=== PATIENT | male | born 1980 | race Caucasian/White ===

== ENCOUNTER 2025-05-28 22:09 | Emergency (ER) | payer SELFPAY ==
[2025-05-28] VITALS (9 sets, daily range): BP systolic 124–153; BP diastolic 83–98; PULSE 86–87; RESP 17–19; TEMP 36.8; O2SAT 95–100; BMI 19.0
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
[2025-05-28 22:55] LABS: Mucous, Urine 0 SEEN /hpf (<or=2+); Squamous Epithelial Cells - UA 0 SEEN /hpf (0-5)
[2025-05-28 22:56] LABS: Hematocrit 37.6 % (40-54); Hemoglobin 12.5 g/dL (13.0-16.5); Immature Granulocytes Count 0.040 X10^3/uL (0.0-0.0); Mean Corp Hgb Conc 33.2 g/dL (32-36); Mean Corpuscular Volume 86.6 fL (80-94); Mean Platelet Vol. 8.1 fl (6.2-12.0); NRBC Flagged by Analyzer 0 % (0-5); Platelet Count 445 K/mm3 (150-450); RBC Distribution Width CV 13.5 % (11.6-14.6); RBC Distribution Width SD 42.7 fl (35.1-43.9); Red Blood Count 4.34 M/mm3 (4.6-6.2); White Blood Count 8.6 K/mm3 (4.4-11.0)
[2025-05-28 22:57] LABS: Color, Urine Yellow (Yellow); Glucose, Dipstick Normal (Normal); Ketone-Dipstick Negative (Negative); Leukocyte Esterase-Dipstick Negative /ul (Negative); Nitrite-Dipstick Negative (Negative); Occult Blood-Urine Negative /ul (Negative); Protein-Dipstick 30 mg/dl (Negative); Specific Gravity, Urine 1.015 (1.002-1.030); Urine Bilirubin Dipstick Negative (Negative)
[2025-05-28 23:06] LABS: Red Blood Cells-Urine 0-5 SEEN /hpf (0-5)
[2025-05-28] MEDS: 0.9% Normal Saline (1000mL) 1,000 ML 1000 ML IV (23:14)
[2025-05-28 23:48] LABS: Anion Gap 12 (7-18); BUN 9 mg/dL (4-19); BUN/Creat Ratio 10.4 RATIO (10-20); Calcium,Total 9.8 mg/dL (7.6-11.0); Carbon Dioxide 26.4 mmol/L (20.0-29.0); Chloride 102 mmol/L (96-106); Estimated Creatinine Clearance 81.07 ml/min (50-250); Glucose 85 mg/dL (70-99); Potassium 4.0 mmol/L (3.5-5.1)
[2025-05-29] VITALS: BP 142/95; O2SAT 100
[2025-05-29 00:14] VITALS: BP 142/95
[2025-05-29 00:26] VITALS: BP 142/95; PULSE 87; RESP 18; TEMP 36.8; O2SAT 100
== END 2025-05-29 00:26 | disposition home or self-care (01) ==
PROVIDERS: Emergency Provider Emergency Medicine; Visit Provider Emergency Medicine
DX: S20.20XA Contusion of thorax, unspecified, initial encounter (principal); S30.11XA Contusion of abdominal wall, initial encounter; F17.210 Nicotine dependence, cigarettes, uncomplicated; Y04.8XXA Assault by other bodily force, initial encounter
CPT/HCPCS: 71260; 74177; 80048; 81001; 85025; 96360; 99285; Q9967; A4216